=== PATIENT | female | born 1975 | race Asian ===

== ENCOUNTER 2018-11-14 00:14 | Emergency (ER) | payer OTHER ==
[~2018-11-14] VITALS: Ht 160 cm; Wt 54.4 kg
[2018-11-14] MEDS ORDERED: NKM (00:15)
[2018-11-14 01:20] LABS: BASOPHILS % (AUTO) 1.3 % (0.0-2.0); EOSINOPHILS % (AUTO) 2.1 % (0.0-3.0); HEMATOCRIT 42.5 % (37.0-47.0); HEMOGLOBIN 14.5 G/DL (12.0-16.0); MEAN CORPUSCULAR VOLUME 94 FL (80-99); MONOCYTES % (AUTO) 5.9 % (1.0-10.0); NEUTROPHILS % (AUTO) 37.8 % (45.0-75.0); PLATELET COUNT 316 K/UL (150-450); RED BLOOD COUNT 4.52 M/UL (4.20-5.40); RED CELL DISTRIBUTION WIDTH 11.7 % (11.6-14.8); WHITE BLOOD COUNT 9.7 K/UL (4.8-10.8)
[2018-11-14 01:21] LABS: APPEARANCE,URINE CLEAR; BILIRUBIN, URINE NEGATIVE (NEGATIVE); COLOR,URINE PALE YELLOW; GLUCOSE, URINE (UA) NEGATIVE (NEGATIVE); KETONES,URINE NEGATIVE (NEGATIVE); LEUKOCYTE ESTERASE ,URINE 3+ (NEGATIVE); NITRITE,URINE NEGATIVE (NEGATIVE); PH,URINE 6 (4.5-8.0); PROTEIN,URINE NEGATIVE (NEGATIVE); UROBILINOGEN,URINE NORMAL MG/DL (0.0-1.0)
[2018-11-14 01:29] LABS: ANION GAP 11 mmol/L (5-15); BLOOD UREA NITROGEN 18 mg/dL (7-18); CALCIUM 9.1 MG/DL (8.5-10.1); CARBON DIOXIDE 26 MMOL/L (21-32); CHLORIDE 107 MMOL/L (98-107); CREATININE 0.8 MG/DL (0.55-1.30); POTASSIUM 3.4 MMOL/L (3.5-5.1); SODIUM 144 MMOL/L (136-145)
[2018-11-14 01:30] VITALS: BP 99/58
[2018-11-14 01:33] LABS: ALANINE AMINOTRANSFERASE 23 U/L (12-78); ALBUMIN 3.8 G/DL (3.4-5.0); ALBUMIN/GLOBULIN RATIO 1.1 (1.0-2.7); ALKALINE PHOSPHATASE 38 U/L (46-116); ASPARTATE AMINO TRANSFERASE 30 U/L (15-37); BILIRUBIN,TOTAL 0.2 MG/DL (0.2-1.0)
[2018-11-14 02:30] VITALS: BP 94/58
[2018-11-14] MEDS ORDERED: ceFAZolin 1gm/50ml Premix 50 ML IV ONE (04:00)
[2018-11-14] MEDS ORDERED: Bacitracin Oint UD TOPIC ONE ×2 (04:08→04:45)
[2018-11-14 04:39] VITALS: BP 104/68
[2018-11-14] MEDS ORDERED: Acetaminophen 500mg (ES) tab ORAL ONE (05:00)
--- NOTE | 2018-11-14 05:34 | Emergency Room Report ---
History of Present Illness General Chief Complaint: Overdose Source: Patient (Ramos Bob MD) Present Illness HPI Patient a 43-year-old female presented after increased altered mental status. Patient reportedly had ingested an unknown amount of Xanax 1 mg tablets. Patient was also noted to have injured her left middle finger. Patient had unknown mechanism of injury. Patient had recent heavy alcohol intake. Patient reportedly had been arguing with her significant other. Patient was noted to have increased confusion and was brought in by EMS. [employer] was also present. Patient was placed on a 5150 hold by [employer]. Patient was noted to have been drinking throughout the day. Patient reportedly made nonspecific statements about wanting to kill herself. Patient was noted to be intoxicated have altered mental status. (Ramos Bob MD) Allergies: Coded Allergies: No Known Allergies (Unverified , 11/14/18) Patient History Past Medical History: see triage record Last Menstrual Period: unk Reviewed Nursing Documentation: PMH: Agreed; PSxH: Agreed (Ramos Bob MD) Nursing Documentation-PMH Past Medical History Deferred: Patient Unconscious (Ramos Bob MD) Review of Systems All Other Systems: limited - by poor historian (Ramos Bob MD) Physical Exam Vital Signs Date Time Temp Pulse Resp B/P (MAP) Pulse Ox O2 Delivery O2 Flow Rate FiO2 11/14/18 00:11 98.1 99 16 96/62 100 Room Air Sp02 EP Interpretation: reviewed, normal General Appearance: alert/responsive, no apparent distress, GCS 15, non-toxic Head: atraumatic Eyes: PERRL, lids + conjunctiva normal ENT: no angioedema Neck: supple/symm/no masses, no meningismus Respiratory: effort normal, no wheezing, chest symmetrical Cardiovascular: regular rate, rhythm, no edema Cardiovascular #2: 2+ carotid (R), 2+ carotid (L), 2+ dorsalis pedis (R), 2+ dorsalis pedis (L) Gastrointestinal: non-tender, no mass, non-distended, no rebound/guarding, normal bowel sounds Musculoskeletal: gait & station normal, strength & tone normal, normal ROM, non -tender Neurologic: other - slurred speech, ataxia Psychiatric: other - unable to assess Skin: no rash, well hydrated Lymphatic: normal inspection (Ramos Bob MD) Procedures Laceration/Wound Repair Laceration/Wound Repair : Consent: Emergent Wound's Depth, Shape: linear Wound Length (cm): 1 Wound Explored: clean Irrigated w/ Saline (ccs): 30 Betadine Prep?: Yes Anesthesia: 0.5% Sensorcaine Volume Anesthetic (ccs): 2 Wound Debrided: minimal Wound Repaired With: sutures Suture Size/Type: 4:0 Number of Sutures: 4 Layer Closure?: No Patient Tolerated: Well Complications: None (Ramos Bob MD) Medical Decision Making Diagnostic Impression: Primary Impression: Alcohol intoxication Qualified Codes: F10.929 - Alcohol use, unspecified with intoxication, unspecified Additional Impressions: Urinary tract infection Qualified Codes: N39.0 - Urinary tract infection, site not specified Laceration of left middle finger Qualified Codes: S61.213A - Laceration without foreign body of left middle finger without damage to nail, initial encounter Drug overdose Qualified Codes: T50.904A - Poisoning by unspecified drugs, medicaments and biological substances, undetermined, initial encounter ER Course Patient presented for altered mental status. Differential diagnosis includes is not limited to alcohol intoxication, benzodiazepine overdose, narcotic overdose, suicide attempt among others. Because of complexity of patient's case laboratory testing and imaging studies were ordered. Patient was noted to have initially altered mental status. Patient had been placed on a 5150 hold by [employer]. Patient was started on IV fluids as well as given Ancef. Patient's left hand had x-ray due to laceration and possible fracture. Patient was given Tylenol due to pain. She was additionally noted to have some evidence of urinary infection. 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.Patient will require a repeat blood alcohol level Labs Test 11/14/18 00:45 11/14/18 01:05 11/14/18 05:00 White Blood Count 9.7 K/UL (4.8-10.8) Red Blood Count 4.52 M/UL (4.20-5.40) Hemoglobin 14.5 G/DL (12.0-16.0) Hematocrit 42.5 % (37.0-47.0) Mean Corpuscular Volume 94 FL (80-99) Mean Corpuscular Hemoglobin 32.1 PG (27.0-31.0) Mean Corpuscular Hemoglobin Concent 34.1 G/DL (32.0-36.0) Red Cell Distribution Width 11.7 % (11.6-14.8) Platelet Count 316 K/UL (150-450) Mean Platelet Volume 5.8 FL (6.5-10.1) Neutrophils (%) (Auto) 37.8 % (45.0-75.0) Lymphocytes (%) (Auto) 53.0 % (20.0-45.0) Monocytes (%) (Auto) 5.9 % (1.0-10.0) Eosinophils (%) (Auto) 2.1 % (0.0-3.0) Basophils (%) (Auto) 1.3 % (0.0-2.0) Sodium Level 144 MMOL/L (136-145) Potassium Level 3.4 MMOL/L (3.5-5.1) Chloride Level 107 MMOL/L (98-107) Carbon Dioxide Level 26 MMOL/L (21-32) Anion Gap 11 mmol/L (5-15) Blood Urea Nitrogen 18 mg/dL (7-18) Creatinine 0.8 MG/DL (0.55-1.30) Estimat Glomerular Filtration Rate > 60 mL/min (>60) Glucose Level 61 MG/DL (74-106) Calcium Level 9.1 MG/DL (8.5-10.1) Total Bilirubin 0.2 MG/DL (0.2-1.0) Aspartate Amino Transf (AST/SGOT) 30 U/L (15-37) Alanine Aminotransferase (ALT/SGPT) 23 U/L (12-78) Alkaline Phosphatase 38 U/L (46-116) Total Protein 7.2 G/DL (6.4-8.2) Albumin 3.8 G/DL (3.4-5.0) Globulin 3.4 g/dL Albumin/Globulin Ratio 1.1 (1.0-2.7) Salicylates Level 1.3 ug/mL (2.8-20) Acetaminophen Level < 2 MCG/ML (10-30) Urine Color Pale yellow Urine Appearance Clear Urine pH 6 (4.5-8.0) Urine Specific [place] 1.005 (1.005-1.035) Urine Protein Negative (NEGATIVE) Urine Glucose (UA) Negative (NEGATIVE) Urine Ketones Negative (NEGATIVE) Urine Blood Negative (NEGATIVE) Urine Nitrite Negative (NEGATIVE) Urine Bilirubin Negative (NEGATIVE) Urine Urobilinogen Normal MG/DL (0.0-1.0) Urine Leukocyte Esterase 3+ (NEGATIVE) Urine RBC 0-2 /HPF (0 - 2) Urine WBC Tntc /HPF (0 - 2) Urine Squamous Epithelial Cells Moderate /LPF (NONE/OCC) Urine Bacteria Few /HPF (NONE) Urine HCG, Qualitative Negative (NEGATIVE) Urine Opiates Screen Negative (NEGATIVE) Urine Barbiturates Screen Negative (NEGATIVE) Phencyclidine (PCP) Screen Negative (NEGATIVE) Urine Amphetamines Screen Negative (NEGATIVE) Urine Benzodiazepines Screen Positive (NEGATIVE) Urine Cocaine Screen Negative (NEGATIVE) Urine Marijuana (THC) Screen Negative (NEGATIVE) Serum Alcohol 148 mg/dL (Ramos Bob MD) ER Course Hospital Course 43 yo F presents s/p overdose on alcohol and xanax. on 5150 hold Clinical course Patient initially seen and evaluated by Dr. Bob. Please see his note for full history and physical Repeat alcohol level within normal limits. Patient is medically cleared for psychiatric evaluation On reassessment this morning patient is clinically sober. Denies SI or HI. Admits to drinking and taking Xanax to sleep. Patient evaluated by psychiatry Dr. Rogers; she agrees that patient is not a danger to self or others. She does recommend prescribing patient remeron and lexapro. 5150 hold lifted. I agree with her assessment the patient does not require emergent psychiatric evaluation Patient evaluated by home service director. Outpatient mental health referrals provided based on insurance Safe for discharge with close outpatient follow-up i. I feel this is a highly complex case requiring extensive working including EKG/Rhythm strip, Xray/CT/US, Blood/urine lab work, repeat exams while in ED, and administration of strong opiates/narcotics for pain control, admission to hospital or close patient follow up. Diagnosis - alcohol intoxication, UTI, laceration of left middle finger, drug overdose Stable and discharged to home with Rx Keflex. Followup with PMD/psych. Return to ED if symptoms recur or worsen Labs Test 11/14/18 00:45 11/14/18 01:05 11/14/18 05:00 11/14/18 08:17 White Blood Count 9.7 K/UL (4.8-10.8) Red Blood Count 4.52 M/UL (4.20-5.40) Hemoglobin 14.5 G/DL (12.0-16.0) Hematocrit 42.5 % (37.0-47.0) Mean Corpuscular Volume 94 FL (80-99) Mean Corpuscular Hemoglobin 32.1 PG (27.0-31.0) Mean Corpuscular Hemoglobin Concent 34.1 G/DL (32.0-36.0) Red Cell Distribution Width 11.7 % (11.6-14.8) Platelet Count 316 K/UL (150-450) Mean Platelet Volume 5.8 FL (6.5-10.1) Neutrophils (%) (Auto) 37.8 % (45.0-75.0) Lymphocytes (%) (Auto) 53.0 % (20.0-45.0) Monocytes (%) (Auto) 5.9 % (1.0-10.0) Eosinophils (%) (Auto) 2.1 % (0.0-3.0) Basophils (%) (Auto) 1.3 % (0.0-2.0) Sodium Level 144 MMOL/L (136-145) Potassium Level 3.4 MMOL/L (3.5-5.1) Chloride Level 107 MMOL/L (98-107) Carbon Dioxide Level 26 MMOL/L (21-32) Anion Gap 11 mmol/L (5-15) Blood Urea Nitrogen 18 mg/dL (7-18) Creatinine 0.8 MG/DL (0.55-1.30) Estimat Glomerular Filtration Rate > 60 mL/min (>60) Glucose Level 61 MG/DL (74-106) Calcium Level 9.1 MG/DL (8.5-10.1) Total Bilirubin 0.2 MG/DL (0.2-1.0) Aspartate Amino Transf (AST/SGOT) 30 U/L (15-37) Alanine Aminotransferase (ALT/SGPT) 23 U/L (12-78) Alkaline Phosphatase 38 U/L (46-116) Total Protein 7.2 G/DL (6.4-8.2) Albumin 3.8 G/DL (3.4-5.0) Globulin 3.4 g/dL Albumin/Globulin Ratio 1.1 (1.0-2.7) Salicylates Level 1.3 ug/mL (2.8-20) Acetaminophen Level < 2 MCG/ML (10-30) Serum Alcohol 252 mg/dL 148 mg/dL 69 mg/dL Urine Color Pale yellow Urine Appearance Clear Urine pH 6 (4.5-8.0) Urine Specific [place] 1.005 (1.005-1.035) Urine Protein Negative (NEGATIVE) Urine Glucose (UA) Negative (NEGATIVE) Urine Ketones Negative (NEGATIVE) Urine Blood Negative (NEGATIVE) Urine Nitrite Negative (NEGATIVE) Urine Bilirubin Negative (NEGATIVE) Urine Urobilinogen Normal MG/DL (0.0-1.0) Urine Leukocyte Esterase 3+ (NEGATIVE) Urine RBC 0-2 /HPF (0 - 2) Urine WBC Tntc /HPF (0 - 2) Urine Squamous Epithelial Cells Moderate /LPF (NONE/OCC) Urine Bacteria Few /HPF (NONE) Urine HCG, Qualitative Negative (NEGATIVE) Urine Opiates Screen Negative (NEGATIVE) Urine Barbiturates Screen Negative (NEGATIVE) Phencyclidine (PCP) Screen Negative (NEGATIVE) Urine Amphetamines Screen Negative (NEGATIVE) Urine Benzodiazepines Screen Positive (NEGATIVE) Urine Cocaine Screen Negative (NEGATIVE) Urine Marijuana (THC) Screen Negative (NEGATIVE) (Mauricio Key MD) Last Vital Signs Date Time Temp Pulse Resp B/P (MAP) Pulse Ox O2 Delivery O2 Flow Rate FiO2 11/14/18 04:39 98.1 78 19 104/68 98 Room Air Status: unchanged (Ramos Bob MD) Status: improved (Mauricio Key MD) Disposition: HOME, SELF-CARE Condition: Stable Scripts Cephalexin* (KEFLEX*) 500 Mg Capsule 500 MG ORAL EVERY 6 HOURS for 7 Days, CAP Prov: Mauricio Key MD 11/14/18 Referrals: NOT CHOSEN IPA/,REFERRING (PCP) Ramos Bob MD Nov 14, 2018 05:34 Mauricio Key MD Nov 14, 2018 14:33
[2018-11-14 07:20] VITALS: BP 94/45
[2018-11-14 09:20] VITALS: BP 115/41
--- NOTE | 2018-11-14 11:01 | Consultation ---
History of Present Illness General Chief Complaint: Overdose Present Illness HPI 43-year-old female presented due to altered mental status.The patient had ingested an unknown amount of Xanax 1 mg tablets (blue oval pills). the pt has been drinking all day and popping Xanax. the pt stated that she got the xanx from Dr. Kamila cam nuerologist. We called the neurologist who did not have the pt in his system. The pt was not found in the [facility] either. the pt stated that she has been dating her current boyfriend for the past 4 years. the pt stated that her bf is and he promised the pt that at some point he will his . The pt stated that she is very stressed. the pt stated that she is depressed and anxious. the pt stated that she is not suicidal and she was only frustrated. the pt stated that she is vet and has a "great social life." the pt stated that is open to see a psychiatrist but she is not "crazy." The pt stated that she is not at imminent dts/dto. the pt is not manic/ psychotic. the pt stated that she is not drinking alcohol every day. she was not withdrawing from alcohol. her bp was low and hr wnl Allergies: Coded Allergies: No Known Allergies (Unverified , 11/14/18) Medication History Scheduled No Known Medications* (NKM - No Known Medications*), 0 ., (Reported) Patient History History Provided By: Patient, Medical Record, PMD Healthcare decision maker Resuscitation status Advanced Directive on File Past Medical/Surgical History Past Medical/Surgical History: (1) Urinary tract infection (2) Alcohol intoxication (3) Drug overdose (4) Laceration of left middle finger Review of Systems Psychiatric: Reports: prior hx, anxiety, depressed feelings, emotional problems Physical Exam General Appearance: WD/WN, no apparent distress, alert Neurologic: oriented x 3, responsive, depressed affect Last 24 Hour Vital Signs Date Time Temp Pulse Resp B/P (MAP) Pulse Ox O2 Delivery O2 Flow Rate FiO2 11/14/18 09:20 98.4 64 16 115/41 96 Room Air 11/14/18 07:20 98.2 81 28 94/45 96 Room Air 11/14/18 05:27 98.1 11/14/18 04:39 98.1 78 19 104/68 98 Room Air 11/14/18 02:30 98.1 89 19 94/58 98 Room Air 11/14/18 01:30 98.1 86 16 99/58 100 Room Air 11/14/18 00:25 99 16 Room Air 11/14/18 00:11 98.1 99 16 96/62 100 Room Air Intake and Output 11/13/18 11/14/18 19:00 07:00 Intake Total 1050 ml Output Total 300 ml Balance 750 ml Intake IV Total 1050 ml Output Urine Total 300 ml Laboratory Tests Test 11/14/18 00:45 11/14/18 01:05 11/14/18 05:00 11/14/18 08:17 White Blood Count 9.7 K/UL (4.8-10.8) Red Blood Count 4.52 M/UL (4.20-5.40) Hemoglobin 14.5 G/DL (12.0-16.0) Hematocrit 42.5 % (37.0-47.0) Mean Corpuscular Volume 94 FL (80-99) Mean Corpuscular Hemoglobin 32.1 PG (27.0-31.0) H Mean Corpuscular Hemoglobin Concent 34.1 G/DL (32.0-36.0) Red Cell Distribution Width 11.7 % (11.6-14.8) Platelet Count 316 K/UL (150-450) Mean Platelet Volume 5.8 FL (6.5-10.1) L Neutrophils (%) (Auto) 37.8 % (45.0-75.0) L Lymphocytes (%) (Auto) 53.0 % (20.0-45.0) H Monocytes (%) (Auto) 5.9 % (1.0-10.0) Eosinophils (%) (Auto) 2.1 % (0.0-3.0) Basophils (%) (Auto) 1.3 % (0.0-2.0) Sodium Level 144 MMOL/L (136-145) Potassium Level 3.4 MMOL/L (3.5-5.1) L Chloride Level 107 MMOL/L (98-107) Carbon Dioxide Level 26 MMOL/L (21-32) Anion Gap 11 mmol/L (5-15) Blood Urea Nitrogen 18 mg/dL (7-18) Creatinine 0.8 MG/DL (0.55-1.30) Estimat Glomerular Filtration Rate > 60 mL/min (>60) Glucose Level 61 MG/DL (74-106) L Calcium Level 9.1 MG/DL (8.5-10.1) Total Bilirubin 0.2 MG/DL (0.2-1.0) Aspartate Amino Transf (AST/SGOT) 30 U/L (15-37) Alanine Aminotransferase (ALT/SGPT) 23 U/L (12-78) Alkaline Phosphatase 38 U/L (46-116) L Total Protein 7.2 G/DL (6.4-8.2) Albumin 3.8 G/DL (3.4-5.0) Globulin 3.4 g/dL Albumin/Globulin Ratio 1.1 (1.0-2.7) Salicylates Level 1.3 ug/mL (2.8-20) L Acetaminophen Level < 2 MCG/ML (10-30) L Serum Alcohol 252 mg/dL 148 mg/dL 69 mg/dL Urine Color Pale yellow Urine Appearance Clear Urine pH 6 (4.5-8.0) Urine Specific [place] 1.005 (1.005-1.035) Urine Protein Negative (NEGATIVE) Urine Glucose (UA) Negative (NEGATIVE) Urine Ketones Negative (NEGATIVE) Urine Blood Negative (NEGATIVE) Urine Nitrite Negative (NEGATIVE) Urine Bilirubin Negative (NEGATIVE) Urine Urobilinogen Normal MG/DL (0.0-1.0) Urine Leukocyte Esterase 3+ (NEGATIVE) H Urine RBC 0-2 /HPF (0 - 2) Urine WBC Tntc /HPF (0 - 2) H Urine Squamous Epithelial Cells Moderate /LPF (NONE/OCC) H Urine Bacteria Few /HPF (NONE) Urine HCG, Qualitative Negative (NEGATIVE) Urine Opiates Screen Negative (NEGATIVE) Urine Barbiturates Screen Negative (NEGATIVE) Phencyclidine (PCP) Screen Negative (NEGATIVE) Urine Amphetamines Screen Negative (NEGATIVE) Urine Benzodiazepines Screen Positive (NEGATIVE) H Urine Cocaine Screen Negative (NEGATIVE) Urine Marijuana (THC) Screen Negative (NEGATIVE) Height (Feet): 5 Height (Inches): 3.00 Weight (Pounds): 120 Assessment/Plan Problem List: (1) Alcohol intoxication ICD Codes: F10.929 - Alcohol use, unspecified with intoxication, unspecified SNOMED: 43174174 (2) MDD (major depressive disorder), recurrent episode, moderate ICD Codes: F33.1 - Major depressive disorder, recurrent, moderate SNOMED: 52239007, 354349069 (3) Anxiety disorder ICD Codes: F41.9 - Anxiety disorder, unspecified SNOMED: 374254184 Status: doing well, stable Assessment/Plan dc 5150 the pt is not meeting the criteria for 5150 the pt is not meeting the criteria for iploc the script was given to pt for Remeron and Lexapro the pt was educated and was provided with martin/Matt Miranda MD Nov 14, 2018 11:01
--- NOTE | 2018-11-14 12:03 | Diagnostic Imaging Report ---
Indication: Left hand laceration Technique: 3 views left hand Comparison: none Findings: No definite acute fractures. No dislocations. The joint spaces are preserved. There is a metallic cable appears attached to the index finger, may obscure pathology. Patient reportedly injured third digit. No definite acute fractures, dislocations, or radiopaque foreign body. Impression: Limited exam. No definite acute bony trauma
[2018-11-14] MEDS ORDERED: CEPHALEXIN500 MG ORAL (12:17)
[2018-11-14 12:30] VITALS: BP 90/51
== END 2018-11-14 12:30 | disposition home or self-care (01) ==
LOC: EDBD 00:14 → EMR 00:34
DX: F10.929 Alcohol use, unspecified with intoxication, unspecified (principal); T50.904A Poisoning by unspecified drugs, medicaments and biological substances, undetermined, initial encounter; S61.213A Laceration without foreign body of left middle finger without damage to nail, initial encounter; N39.0 Urinary tract infection, site not specified; X58.XXXA Exposure to other specified factors, initial encounter; Y93.9 Activity, unspecified; Y92.9 Unspecified place or not applicable
CPT/HCPCS: 12001; 36415; 73130; 80053; 80307; 81003; 81025; 85025; 87086; 96361; 96365; 99285; G0480; J0690; 80329